=== PATIENT | female | born 1990 | race African-American/Black ===

== ENCOUNTER 2023-01-18 20:22 | Emergency (ER) | payer OTHER ==
[~2023-01-18] VITALS: Ht 154.9 cm; Wt 82.8 kg
[2023-01-18 20:26] VITALS: BP 150/100
[2023-01-18] MEDS ORDERED: IBUPROFEN 400MG TABLET PO ONE (23:30)
[2023-01-19] MEDS ORDERED: IBUP-2028 MT (01:03)
== END 2023-01-19 01:24 | disposition home or self-care (01) ==
LOC: ER 20:22
DX: M25.512 Pain in left shoulder (principal); M54.89 Other dorsalgia; M54.2 Cervicalgia; M25.562 Pain in left knee; M79.632 Pain in left forearm; M25.522 Pain in left elbow; R03.0 Elevated blood-pressure reading, without diagnosis of hypertension; G89.11 Acute pain due to trauma; V49.49XA Driver injured in collision with other motor vehicles in traffic accident, initial encounter; Y93.89 Activity, other specified; Y92.488 Other paved roadways as the place of occurrence of the external cause
CPT/HCPCS: 73030; 73060; 73080; 73090; 73562; 99284; A4565